=== PATIENT | female | born 1985 | race Caucasian/White ===

== ENCOUNTER 2017-12-24 18:07 | Emergency (ER) | payer BC, MEDICAID ==
[2017-12-24] MEDS ORDERED: Sodium Chloride 0.9% 1,000 ML IV ONE (18:36)
[2017-12-24] MEDS ORDERED: Sodium Chloride 0.9% 10 ML Syringe FLUSH PRN (18:37)
[2017-12-24] MEDS ORDERED: Ketorolac 30 MG/ML SDV IVPUSH ONE (18:37)
[2017-12-24] MEDS ORDERED: Ondansetron 4 MG/2 ML SDV IV ONE (18:37)
[2017-12-24] MEDS ORDERED: Butorphanol 2 MG/ML SDV IVPUSH ONE (18:38)
--- NOTE | 2017-12-24 18:50 | EDM.PDOC ---
<Uday Shelton - Last Filed: 12/24/17 18:45> ED HPI GENERAL MEDICAL PROBLEM - General Chief Complaint: Headache Stated Complaint: SEVERE MIGRAINE Time Seen by Provider: 12/24/17 18:35 Source of Information: Reports: Patient, Family, RN, RN Notes Reviewed History Limitations: Reports: No Limitations - History of Present Illness INITIAL COMMENTS - FREE TEXT/NARRATIVE: C/O severe frontal migraine that began this morning when pt woke up. She tried her home migraine medications but could not keep any of the medicine down due to vomiting. 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 Denies fever, chills, neck pain, or any acute neuro. changes. Pt has long Hx of migraines. Onset: Today Onset Date: 12/24/17 Onset Time: 08:00 (approximate) Duration: Constant Location: Reports: Head Quality: Reports: Ache, Same as Previous Episode Severity: Severe Improves with: Reports: None Worsens with: Reports: None Associated Symptoms: Reports: No Other Symptoms Head Pain Score (Numeric/FACES): 8 - Related Data Allergies Allergy/AdvReac Type Severity Reaction Status Date / Time No Known Allergies Allergy Verified 07/17/14 09:55 Home Meds: Home Meds metFORMIN [Glucophage] 1,000 mg PO BIDM 07/17/14 [History] Butalb/Acetaminophen/Caffeine [[id number] 50-325-40] 1 tab PO ASDIRECTED PRN 12/24/17 [History] FLUoxetine HCl [Fluoxetine HCl] 1 tab PO DAILY 12/24/17 [History] Glimepiride [Amaryl] 1 tab PO DAILY 12/24/17 [History] Metoclopramide HCl 1 tab PO ASDIRECTED PRN 12/24/17 [History] Pravastatin Sodium 1 tab PO BEDTIME 12/24/17 [History] ZOLMitriptan [Zolmitriptan] 1 tab PO ASDIRECTED PRN 12/24/17 [History] predniSONE 2 tab PO ASDIRECTED 12/24/17 [History] traZODone HCl [Trazodone HCl] 1 tab PO BEDTIME 12/24/17 [History] Past Medical History Cardiovascular History: Reports: High Cholesterol Neurological History: Reports: Migraines Psychiatric History: Reports: Depression Endocrine/Metabolic History: Reports: Diabetes, Type II, Obesity/BMI 30+ Social & Family History - Family History Family Medical History: Noncontributory - Tobacco Use Smoking Status *Q: Never Smoker Second Hand Smoke Exposure: No - Caffeine Use Caffeine Use: Reports: Coffee, Soda - Recreational Drug Use Recreational Drug Use: No - Living Situation & Occupation Living situation: Reports: with Family ED ROS GENERAL - Review of Systems Review Of Systems: ROS reveals no pertinent complaints other than HPI. - Physical Exam Exam: See Below Exam Limited By: No Limitations General Appearance: Alert, No Apparent Distress, Obese, Other (uncomfortable appearing) Eye Exam: Bilateral Eye: Normal Inspection (with photo phobia) Ears: Hearing Grossly Normal Nose: Normal Inspection Throat/Mouth: Normal Inspection, Normal Voice, No Airway Compromise Head Exam: Atraumatic, Normocephalic Neck: Normal Inspection, Supple, Non-Tender, Full Range of Motion Respiratory/Chest: No Respiratory Distress, Lungs Clear, Normal Breath Sounds, No Accessory Muscle Use, Chest Non-Tender Cardiovascular: Regular Rate, Rhythm GI/Abdominal: Normal Bowel Sounds, Soft, Non-Tender, No Distention Neuro Exam (Abbreviated): Alert, Oriented, CN II-XII Intact, Normal Cognition, Normal Gait, No Motor/Sensory Deficits Back Exam: Normal Inspection Extremities: Normal Inspection Psychiatric: Normal Affect, Normal Mood Skin Exam: Warm, Dry, Intact, Normal Color, No Rash Course - Vital Signs Last Recorded V/S: Last Vital Signs Temp 96.8 F 12/24/17 19:56 Pulse 95 12/24/17 19:56 Resp 16 12/24/17 19:56 BP 116/58 L 12/24/17 19:56 Pulse Ox 94 L 12/24/17 19:56 - Orders/Labs/Meds Orders: Active Orders 24 hr Category Date Time Status Peripheral IV Care [RC] . DIRECTED Care 12/24/17 18:37 Active Peripheral IV Insertion Adult [OM.PC] Stat Oth 12/24/17 18:35 Ordered Labs: Laboratory Tests 12/24/17 Range/Units 19:52 POC Glucose 246 H (70-105) mg/dl Meds: Medications Discontinued Medications Generic Name Dose Route Start Last Admin Trade Name Freq PRN Reason Stop Dose Admin Butorphanol Tartrate 2 mg 12/24/17 18:38 06/03/18 18:52 Stadol IVPUSH 12/24/17 18:39 2 mg ONETIME ONE Administration Sodium Chloride 1,000 mls @ 999 mls/hr 12/24/17 18:36 12/24/17 18:50 Normal Saline IV 12/24/17 19:36 999 mls/hr .BOLUS ONE Administration Ketorolac Tromethamine 30 mg 12/24/17 18:37 12/24/17 18:56 Toradol IVPUSH 12/24/17 18:38 30 mg ONETIME ONE Administration Ondansetron HCl 4 mg 12/24/17 18:37 12/24/17 18:51 Zofran IV 12/24/17 18:38 4 mg ONETIME ONE Administration Sodium Chloride 10 ml 12/24/17 18:37 12/24/17 18:58 Saline Flush FLUSH 10 ml ASDIRECTED PRN Administration Keep Vein Open - Re-Assessments/Exams Free Text/Narrative Re-Assessment/Exam: 12/24/17 18:52 Care of pt transferred to [facility] at shift change with radiology report pending. Departure - Departure Disposition: Home, Self-Care 01 Clinical Impression: Migraine - Discharge Information Referrals: Tiffany Walsh MD [Primary Care Provider] - Forms: ED Department Discharge Additional Instructions: Rest zofran 4mg every 4 hours as needed for nausea or metaclopramide as per home order benadryl 50mg every 4 hours as needed tonight follow with primary care or neurologist this week monitor blood sugars advance diet slowly <Odalis Bustos - Last Filed: 12/24/17 23:10> Course - Orders/Labs/Meds Labs: Laboratory Tests 12/24/17 Range/Units 19:52 POC Glucose 246 H (70-105) mg/dl - Re-Assessments/Exams Free Text/Narrative Re-Assessment/Exam: Headache and nausea improved. Departure - Departure Time of Disposition: 19:50 Condition: Good
== END 2017-12-24 20:00 | disposition home or self-care (01) ==
LOC: DL.ED 18:07
DX: G43.909 Migraine, unspecified, not intractable, without status migrainosus (principal); E78.00 Pure hypercholesterolemia, unspecified; E11.9 Type 2 diabetes mellitus without complications; Z79.84 Long term (current) use of oral hypoglycemic drugs; Z79.899 Other long term (current) drug therapy
CPT/HCPCS: 82962; 96361; 96374; 96375; 99284; J0595; J1885; J2405; J7030; J7050

== ENCOUNTER 2019-09-22 15:07 | Emergency (ER) | payer BC ==
[2019-09-22] MEDS ORDERED: Sodium Chloride 0.9% 10 ML Syringe FLUSH PRN (16:06)
[2019-09-22] MEDS ORDERED: Ketorolac 30 MG/ML SDV IVPUSH ONE (16:06)
[2019-09-22] MEDS ORDERED: Ondansetron 4 MG/2 ML SDV IV ONE (16:06)
[2019-09-22] MEDS ORDERED: Butorphanol 2 MG/ML SDV IVPUSH ONE (16:06)
[2019-09-22] MEDS ORDERED: Sodium Chloride 0.9% 1,000 ML IV ONE (16:06)
--- NOTE | 2019-09-22 17:21 | EDM.PDOC ---
Scribed by Kristina Roberts 09/22/19 0017 for Uday Shelton MD ED HPI GENERAL MEDICAL PROBLEM - General Chief Complaint: Headache Stated Complaint: BAD HEADACHE AND VOMITING Time Seen by Provider: 09/22/19 16:04 Source of Information: Reports: Patient, RN, RN Notes Reviewed History Limitations: Reports: No Limitations - History of Present Illness INITIAL COMMENTS - FREE TEXT/NARRATIVE: Patient presents to ER by POV with migraine and emesis that she awoke with this morning. Patient rates pain 10/10. Patient states migraine history. Pt reports the symptoms are exactly the same as her usual migraines with no new or neurological symptoms. Onset: Today Duration: Constant Location: Reports: Head Quality: Reports: Same as Previous Episode Severity: Severe Improves with: Reports: None Worsens with: Reports: None Associated Symptoms: Reports: No Other Symptoms Frontal Headache Pain Score (Numeric/FACES): 10 - Related Data Allergies Allergy/AdvReac Type Severity Reaction Status Date / Time No Known Allergies Allergy Verified 09/22/19 15:49 Home Meds: Home Meds metFORMIN [Glucophage] 1,000 mg PO BIDM 07/17/14 [History] FLUoxetine HCl [Fluoxetine HCl] 1 tab PO DAILY 12/24/17 [History] Pravastatin Sodium 1 tab PO BEDTIME 12/24/17 [History] traZODone HCl [Trazodone HCl] 1 tab PO BEDTIME 12/24/17 [History] Past Medical History Cardiovascular History: Reports: High Cholesterol Neurological History: Reports: Migraines Psychiatric History: Reports: Depression Endocrine/Metabolic History: Reports: Diabetes, Type II, Obesity/BMI 30+ Social & Family History - Family History Family Medical History: Noncontributory - Caffeine Use Caffeine Use: Reports: Coffee, Soda - Living Situation & Occupation Living situation: Reports: with Family ED ROS GENERAL - Review of Systems Review Of Systems: Comprehensive ROS is negative, except as noted in HPI. - Physical Exam Exam: See Below Exam Limited By: No Limitations General Appearance: Alert, WD/WN, No Apparent Distress, Other (Uncomfortable appearing) Eye Exam: Bilateral Eye: EOMI, Normal Inspection (Photophobia), PERRL Ears: Normal External Exam Nose: Normal Inspection, Normal Mucosa, No Blood Throat/Mouth: Normal Inspection, Normal Lips, Normal Teeth, Normal Gums, Normal Oropharynx, Normal Voice, No Airway Compromise Head Exam: Atraumatic, Normocephalic Neck: Normal Inspection, Supple, Non-Tender, Full Range of Motion Respiratory/Chest: No Respiratory Distress, Lungs Clear, Normal Breath Sounds, No Accessory Muscle Use, Chest Non-Tender Cardiovascular: Regular Rate, Rhythm, No Edema, Tachycardia GI/Abdominal: Normal Bowel Sounds, Soft, Non-Tender, No Organomegaly, No Distention, No Abnormal Bruit, No Mass Neuro Exam (Abbreviated): Alert, Oriented, CN II-XII Intact, Normal Cognition, Normal Gait, No Motor/Sensory Deficits Psychiatric: Normal Affect, Normal Mood Skin Exam: Warm, Dry, Intact, Normal Color, No Rash Course - Vital Signs Last Recorded V/S: Last Vital Signs Temp 98 F 09/22/19 15:44 Pulse 109 H 09/22/19 15:44 Resp 18 09/22/19 15:44 BP 133/80 09/22/19 15:44 Pulse Ox 95 09/22/19 15:44 - Orders/Labs/Meds Orders: Active Orders 24 hr Category Date Time Status Peripheral IV Care [RC] . DIRECTED Care 09/22/19 16:06 Active Sodium Chloride 0.9% [Saline Flush] Med 09/22/19 16:06 Active 10 ml FLUSH ASDIRECTED PRN Peripheral IV Insertion Adult [OM.PC] Stat Oth 09/22/19 16:06 Ordered Medication Orders Sodium Chloride (Saline Flush) 10 ml FLUSH ASDIRECTED PRN PRN Reason: Keep Vein Open Last Admin: 09/22/19 16:32 Dose: 10 ml Meds: Medications Generic Name Dose Route Start Last Admin Trade Name Freq PRN Reason Stop Dose Admin Sodium Chloride 10 ml 09/22/19 16:06 09/22/19 16:32 Saline Flush FLUSH 10 ml ASDIRECTED PRN Administration Keep Vein Open Discontinued Medications Generic Name Dose Route Start Last Admin Trade Name Freq PRN Reason Stop Dose Admin Butorphanol Tartrate 2 mg 09/22/19 16:06 09/22/19 16:33 Stadol IVPUSH 09/22/19 16:07 2 mg ONETIME ONE Administration Sodium Chloride 1,000 mls @ 999 mls/hr 09/22/19 16:06 09/22/19 16:31 Normal Saline IV 09/22/19 17:06 999 mls/hr .BOLUS ONE Administration Ketorolac Tromethamine 30 mg 09/22/19 16:06 09/22/19 16:36 Toradol IVPUSH 09/22/19 16:07 30 mg ONETIME ONE Administration Ondansetron HCl 4 mg 09/22/19 16:06 09/22/19 16:29 Zofran IV 09/22/19 16:07 4 mg ONETIME ONE Administration Departure - Departure Time of Disposition: 17:21 Disposition: Home, Self-Care 01 Condition: Good Clinical Impression: Migraine Qualifiers: Migraine type: without aura Status migrainosus presence: without status migrainosus Intractability: not intractable Qualified Code(s): G43.009 - Migraine without aura, not intractable, without status migrainosus - Discharge Information *PRESCRIPTION DRUG MONITORING PROGRAM REVIEWED*: Not Applicable *COPY OF PRESCRIPTION DRUG MONITORING REPORT IN PATIENT ASHLIE: Not Applicable Instructions: Migraine Headache, [id number] Forms: ED Department Discharge Additional Instructions: Rx: Promethazine 25mg suppository Rest, drink plenty of water. Follow up in clinic with your doctor if needed. Return to ER if worse at any time. Sepsis Event Note - Focused Exam Vital Signs: Vital Signs Temp Pulse Resp BP Pulse Ox 09/22/19 15:44 98 F 109 H 18 133/80 95 Date Exam was Performed: 09/22/19 Time Exam was Performed: 17:21 - My Orders Last 24 Hours: My Active Orders 09/22/19 16:06 Peripheral IV Care [RC] . DIRECTED Sodium Chloride 0.9% [Saline Flush] 10 ml FLUSH ASDIRECTED PRN Peripheral IV Insertion Adult [OM.PC] Stat - Assessment/Plan Last 24 Hours: My Active Orders 09/22/19 16:06 Peripheral IV Care [RC] . DIRECTED Sodium Chloride 0.9% [Saline Flush] 10 ml FLUSH ASDIRECTED PRN Peripheral IV Insertion Adult [OM.PC] Stat I have read and agree with the documentation that has been completed regarding this visit. By signing this record, I attest that the documentation was completed in my physical presence and is an accurate record of the encounter.
== END 2019-09-22 17:29 | disposition home or self-care (01) ==
LOC: DL.ED 15:07
DX: G43.009 Migraine without aura, not intractable, without status migrainosus (principal); E78.00 Pure hypercholesterolemia, unspecified; F32.9 Major depressive disorder, single episode, unspecified; E66.9 Obesity, unspecified; Z68.32 Body mass index [BMI] 32.0-32.9, adult; E11.9 Type 2 diabetes mellitus without complications; Z79.84 Long term (current) use of oral hypoglycemic drugs; Z79.899 Other long term (current) drug therapy
CPT/HCPCS: 96361; 96374; 96375; 99283; J0595; J1885; J2405; J7030